=== PATIENT | female | born 1955 | race African-American/Black ===

== ENCOUNTER 2016-10-21 09:50 | Emergency (ER) | payer MEDICARE, MEDICAID ==
[~2016-10-21] VITALS: Ht 170.2 cm; Wt 82.0 kg
[~2016-10-21 09:50] MED LIST: ASPI-1035; CALC-696; DILT360C31; ECON15CR11; FLOV22; HYDR25TA; LORA10TA2; LOSA25TA12; OMEP20CA4; PATAODR; POTA8TAB4; SIMV40TA2
[2016-10-21 10:23] VITALS: BP 163/83
== END 2016-10-21 12:45 | disposition home or self-care (01) ==
LOC: ER 12:41
DX: S92.912A Unspecified fracture of left toe(s), initial encounter for closed fracture (principal); M79.605 Pain in left leg; I10 Essential (primary) hypertension; Z88.5 Allergy status to narcotic agent; Z79.82 Long term (current) use of aspirin; Z79.899 Other long term (current) drug therapy; Z87.891 Personal history of nicotine dependence; X58.XXXA Exposure to other specified factors, initial encounter; Y93.01 Activity, walking, marching and hiking; Y92.9 Unspecified place or not applicable; Y99.8 Other external cause status
CPT/HCPCS: 73590; 73610; 73630; 99284; A4565

== ENCOUNTER 2018-07-09 12:41 | Emergency (ER) | payer MEDICARE, MEDICAID ==
[~2018-07-09] VITALS: Ht 170.2 cm; Wt 75.0 kg
[~2018-07-09 12:41] MED LIST changes: -ASPI-1035; +ASPI-1158
[2018-07-09 12:57] VITALS: BP 154/75
== END 2018-07-09 17:15 | disposition left against medical advice (07) ==
LOC: ER 12:41
DX: Z53.21 Procedure and treatment not carried out due to patient leaving prior to being seen by health care provider (principal)

== ENCOUNTER 2019-07-10 11:28 | Emergency (ER) | payer MEDICARE, MEDICAID ==
[~2019-07-10] VITALS: Ht 162.6 cm; Wt 82.0 kg
[~2019-07-10 11:28] MED LIST changes: -ECON15CR11; +ECON15CR4; -LOSA25TA12; +LOSA25TA26
[2019-07-10 16:07] VITALS: BP 145/75
== END 2019-07-10 16:51 | disposition home or self-care (01) ==
LOC: ER 12:03
DX: S80.812A Abrasion, left lower leg, initial encounter (principal); S80.811A Abrasion, right lower leg, initial encounter; I10 Essential (primary) hypertension; F03.90 Unspecified dementia, unspecified severity, without behavioral disturbance, psychotic disturbance, mood disturbance, and anxiety; W07.XXXA Fall from chair, initial encounter; Y93.9 Activity, unspecified; Y92.9 Unspecified place or not applicable; Z88.6 Allergy status to analgesic agent; Z86.73 Personal history of transient ischemic attack (TIA), and cerebral infarction without residual deficits
CPT/HCPCS: 71045; 72170; 99284

== ENCOUNTER 2020-05-17 11:26 | Inpatient (IN) | payer MEDICARE, MEDICAID ==
[~2020-05-17] VITALS: Ht 157.5 cm; Wt 79.5 kg
[2020-05-17] MEDS ORDERED: ACETAMINOPHEN 325MG TABLET PO STA (11:44)
[2020-05-17] MEDS ORDERED: SODIUM CHLORIDE 0.9% 1000ML BAG (SEPSIS BOLUS) IV ONE (11:45)
[2020-05-17] MEDS ORDERED: ACETAMINOPHEN 650MG SUPP PR ONE (12:45)
[2020-05-17 12:53] LABS: BASOPHILS % 0.4 % (0.0-2.0); HEMATOCRIT. 37.5 % (36.0-48.0); HEMOGLOBIN. 12.5 g/dL (12.0-16.0); LYMPHOCYTES % 8.9 % (20.0-50.0); MEAN CORPUSCULAR HEMOGLOBIN 29.4 pg (28.0-32.0); MEAN CORPUSCULAR VOLUME 88.1 fL (81.0-99.0); MEAN PLATELET VOLUME 9.5 fl (7.4-10.4); MONOCYTES % 2.7 % (2.0-8.0); PLATELET 204 x1000/uL (130-400); RED BLOOD CELL COUNT 4.26 mill/uL (4.2-5.4); RED CELL DISTRIBUTION WIDTH 15.2 % (11.6-14.6)
[2020-05-17 13:02] LABS: INR 1.1; PROTHROMBIN TIME 11.4 sec (9.6-11.0)
[2020-05-17 13:03] LABS: CHLORIDE 95 mEq/L (98-107)
[2020-05-17 13:27] LABS: CREATINE KINASE 1553 IU/L (26-192)
[2020-05-17 14:17] LABS: CLARITY URINE CLOUDY (CLEAR); COLOR URINE YELLOW (YELLOW); KETONES URINE NEGATIVE (NEGATIVE); LEUKOCYTE ESTERASE URINE NEGATIVE (NEGATIVE); NITRITE URINE POSITIVE (NEGATIVE); OCCULT BLOOD URINE TRACE (NEGATIVE); PROTEIN URINE 2+ (NEGATIVE); SPECIFIC GRAVITY URINE 1.014 (1.005-1.030)
[2020-05-17] MEDS ORDERED: VANCOMYCIN 1 G PREMIX 200 ML IV ONE (15:00)
[2020-05-17] MEDS ORDERED: PIPERACILLIN/TAZ 3.375G PREMIX 50 ML IV ONE (15:00)
[2020-05-17] MEDS ORDERED: CLONIDINE 0.1MG TABLET PO PRN (21:45)
[2020-05-18] VITALS: BP 135/61
[2020-05-18] MEDS ORDERED: MORPHINE SULFATE 2 MG/ML CPJ (NOT FOR IM USE) IV PRN (00:15)
[2020-05-18] MEDS ORDERED: ACETAMINOPHEN 325MG TABLET PO PRN (00:15)
[2020-05-18 00:37] VITALS: BP 149/80
[2020-05-18] MEDS: POTASSIUM CHLORIDE 20MEQ TABLET SR PO SCH (01:47)
[2020-05-18] MEDS: PIPERACILLIN/TAZOBACTAM 3.375 G in DEXT 5% WATER 100 ML IV SCH ×3 (05:21→17:48)
[2020-05-18] MEDS: VANCOMYCIN 750 MG PREMIX 150 ML IV SCH ×2 (05:56→22:08)
[2020-05-18] MEDS ORDERED: PIPERACILLIN/TAZOBACTAM 3.375 G/VIAL IV SCH (06:00)
[2020-05-18] MEDS: OMEPRAZOLE 20MG CAPSULE EXTENDED RELEASE PO SCH (06:10)
[2020-05-18 08:00] VITALS: BP 120/53
[2020-05-18] MEDS: ASPIRIN 81MG TABLET PO SCH (09:16)
[2020-05-18] MEDS: LOSARTAN POTASSIUM 25 MG TABLET PO SCH (09:17)
[2020-05-18] MEDS: DILTIAZEM HCL 180MG CAPSULE CD 24HR PO SCH (09:17)
[2020-05-18] MEDS: LORATADINE 10MG TABLET PO SCH (09:17)
[2020-05-18] MEDS: CALCIUM CARBONATE 1250MG TABLET (500MG ELEMENTAL CALCIUM) PO SCH ×3 (09:17→17:47)
[2020-05-18 12:00] VITALS: BP 129/62
[2020-05-18 15:15] LABS: BASOPHILS % 0.2 % (0.0-2.0); CHLORIDE 102 mEq/L (98-107); EOSINOPHILS % 0.7 % (0.0-5.0); HEMATOCRIT. 32.1 % (36.0-48.0); HEMOGLOBIN. 10.7 g/dL (12.0-16.0); LYMPHOCYTES % 12.2 % (20.0-50.0); MEAN CORPUSCULAR HEMOGLOBIN 29.6 pg (28.0-32.0); MEAN CORPUSCULAR VOLUME 88.9 fL (81.0-99.0); MONOCYTES % 5.2 % (2.0-8.0); NEUTROPHILS % 81.7 % (40.0-76.0); PLATELET 163 x1000/uL (130-400); RED BLOOD CELL COUNT 3.61 mill/uL (4.2-5.4); RED CELL DISTRIBUTION WIDTH 15.8 % (11.6-14.6)
[2020-05-18 15:35] LABS: CREATINE KINASE 2032 IU/L (26-192)
[2020-05-18 16:00] VITALS: BP 134/56
[2020-05-18 20:00] VITALS: BP 121/53
[2020-05-18] MEDS: ATORVASTATIN CALCIUM 20MG TABLET PO SCH (21:22)
[2020-05-19] VITALS: BP 128/54
[2020-05-19] MEDS: PIPERACILLIN/TAZOBACTAM 3.375 G in DEXT 5% WATER 100 ML IV SCH ×3 (00:18→13:14)
[2020-05-19 04:00] VITALS: BP 139/78
[2020-05-19] MEDS: OMEPRAZOLE 20MG CAPSULE EXTENDED RELEASE PO SCH (06:18)
[2020-05-19 06:38] LABS: CHLORIDE 102 mEq/L (98-107)
[2020-05-19 08:00] VITALS: BP 137/80
[2020-05-19] MEDS: ASPIRIN 81MG TABLET PO SCH (09:35)
[2020-05-19] MEDS: VANCOMYCIN 750 MG PREMIX 150 ML IV SCH (09:35)
[2020-05-19] MEDS: LORATADINE 10MG TABLET PO SCH (09:35)
[2020-05-19] MEDS: CALCIUM CARBONATE 1250MG TABLET (500MG ELEMENTAL CALCIUM) PO SCH ×3 (09:35→19:45)
[2020-05-19] MEDS: LOSARTAN POTASSIUM 25 MG TABLET PO SCH (09:35)
[2020-05-19] MEDS: DILTIAZEM HCL 180MG CAPSULE CD 24HR PO SCH (09:36)
[2020-05-19] MEDS: POTASSIUM CHLORIDE 20MEQ TABLET SR PO SCH (09:36)
[2020-05-19] MEDS ORDERED: POTASSIUM CHLORIDE 20MEQ TABLET SR PO NR (11:00)
[2020-05-19 12:00] VITALS: BP 128/72
[2020-05-19] MEDS ORDERED: VANCOMYCIN 1250MG in DEXTROSE 5% WATER 250ML IV SCH (13:00)
[2020-05-19] MEDS ORDERED: CEFTRIAXONE 1 G PREMIX 50 ML IV SCH (15:30)
[2020-05-19 16:00] VITALS: BP 136/88
[2020-05-19] MEDS ORDERED: BISACODYL 10MG SUPP PR PRN (16:15)
[2020-05-19] MEDS ORDERED: IPRATROPIUM/ALBUTEROL 0.5-3(2.5)MG/3ML NEB HHN PRN (16:15)
[2020-05-19] MEDS: ENOXAPARIN 40MG/0.4ML SYR SUBCUT SCH ×2 (17:00→19:46)
[2020-05-19] MEDS: SODIUM CHLORIDE 0.9% 1,000 ML IV SCH (19:45)
[2020-05-19] MEDS: CEFTRIAXONE 1,000 MG in DEXTROSE 5% WATER 50 ML IV SCH (19:45)
[2020-05-19] MEDS: VANCOMYCIN 1250MG in DEXTROSE 5% WATER 250ML IV SCH (19:47)
[2020-05-19 20:00] VITALS: BP 148/69
[2020-05-19] MEDS: ATORVASTATIN CALCIUM 20MG TABLET PO SCH (22:39)
[2020-05-20] VITALS (7 sets, daily range): BP systolic 118–158; BP diastolic 55–75
[2020-05-20] MEDS: SODIUM CHLORIDE 0.9% 1,000 ML IV SCH (05:35)
[2020-05-20] MEDS: OMEPRAZOLE 20MG CAPSULE EXTENDED RELEASE PO SCH (05:45)
[2020-05-20] MEDS: VANCOMYCIN 1250MG in DEXTROSE 5% WATER 250ML IV SCH (05:45)
[2020-05-20 09:55] LABS: BASOPHILS % 0.5 % (0.0-2.0); EOSINOPHILS % 6.5 % (0.0-5.0); HEMATOCRIT. 31.9 % (36.0-48.0); HEMOGLOBIN. 10.5 g/dL (12.0-16.0); LYMPHOCYTES % 19.1 % (20.0-50.0); MEAN CORPUSCULAR HEMOGLOBIN 29.4 pg (28.0-32.0); MEAN CORPUSCULAR VOLUME 89.6 fL (81.0-99.0); MEAN PLATELET VOLUME 9.5 fl (7.4-10.4); MONOCYTES % 6.1 % (2.0-8.0); NEUTROPHILS % 67.8 % (40.0-76.0); PLATELET 205 x1000/uL (130-400); RED BLOOD CELL COUNT 3.56 mill/uL (4.2-5.4); RED CELL DISTRIBUTION WIDTH 15.8 % (11.6-14.6)
[2020-05-20 09:56] LABS: CHLORIDE 105 mEq/L (98-107)
[2020-05-20] MEDS: ASPIRIN 81MG TABLET PO SCH (10:01)
[2020-05-20] MEDS: DILTIAZEM HCL 180MG CAPSULE CD 24HR PO SCH (10:02)
[2020-05-20] MEDS: CALCIUM CARBONATE 1250MG TABLET (500MG ELEMENTAL CALCIUM) PO SCH ×4 (10:02→18:04)
[2020-05-20] MEDS: POTASSIUM CHLORIDE 20MEQ TABLET SR PO SCH (10:02)
[2020-05-20] MEDS: LOSARTAN POTASSIUM 25 MG TABLET PO SCH (10:03)
[2020-05-20] MEDS: LORATADINE 10MG TABLET PO SCH (10:03)
[2020-05-20] MEDS ORDERED: LORAZEPAM 2MG/ML CPJ IV PRN (11:00)
[2020-05-20] MEDS ORDERED: LEVO500T2 MT (14:08)
[2020-05-20] MEDS: ENOXAPARIN 40MG/0.4ML SYR SUBCUT SCH (17:00)
[2020-05-20] MEDS: CEFTRIAXONE 1,000 MG in DEXTROSE 5% WATER 50 ML IV SCH (18:02)
[2020-05-20] MEDS: ATORVASTATIN CALCIUM 20MG TABLET PO SCH (20:24)
== END 2020-05-20 20:53 | disposition home or self-care (01) | DRG 871 ==
LOC: ER 12:32 → EDBEDREQSVC 18:10 → EDBEDREQ 18:10 → ENRESERV 19:21 → 5WST 22:58
PROVIDERS: ADMIT Internal Medicine; ATTEND Internal Medicine
DX: A41.9 Sepsis, unspecified organism (principal); G93.41 Metabolic encephalopathy; E87.1 Hypo-osmolality and hyponatremia; E87.2 Acidosis; L03.116 Cellulitis of left lower limb; M62.82 Rhabdomyolysis; N30.90 Cystitis, unspecified without hematuria; D25.9 Leiomyoma of uterus, unspecified; D64.9 Anemia, unspecified; E78.5 Hyperlipidemia, unspecified; E87.6 Hypokalemia; F03.90 Unspecified dementia, unspecified severity, without behavioral disturbance, psychotic disturbance, mood disturbance, and anxiety; I10 Essential (primary) hypertension; K52.9 Noninfective gastroenteritis and colitis, unspecified; K57.90 Diverticulosis of intestine, part unspecified, without perforation or abscess without bleeding; K59.00 Constipation, unspecified; N20.0 Calculus of kidney; E66.9 Obesity, unspecified; R73.9 Hyperglycemia, unspecified; M67.48 Ganglion, other site; Z79.51 Long term (current) use of inhaled steroids; Z79.899 Other long term (current) drug therapy; Z86.73 Personal history of transient ischemic attack (TIA), and cerebral infarction without residual deficits; Z79.82 Long term (current) use of aspirin; Z68.32 Body mass index [BMI] 32.0-32.9, adult
CPT/HCPCS: 36415; 71045; 74176; 80048; 80053; 80202; 81003; 82550; 82962; 83605; 84484; 85025; 87077; 87186; 93005; 96365; 97163; 97166; 97530; 99291; A6261; C1893; J0696; J1650; J2060; J2543; J3370; J7030; J7060

== ENCOUNTER 2020-06-08 14:41 | Inpatient (IN) | payer MEDICARE, MEDICAID ==
[~2020-06-08] VITALS: Ht 162.6 cm; Wt 103.9 kg
[~2020-06-08 14:41] MED LIST changes: +LEVO500T2 MT
[2020-06-08] MEDS ORDERED: ACETAMINOPHEN 650MG SUPP PR STA (16:03)
[2020-06-08] MEDS ORDERED: SODIUM CHLORIDE 0.9% 1000ML BAG (SEPSIS BOLUS) IV ONE (16:15)
[2020-06-08] MEDS ORDERED: CEFTRIAXONE 1 G PREMIX 50 ML IV ONE (16:15)
[2020-06-08 21:06] LABS: BASOPHILS % 0.3 % (0.0-2.0); EOSINOPHILS % 0.1 % (0.0-5.0); HEMOGLOBIN. 12.3 g/dL (12.0-16.0); LYMPHOCYTES % 8.4 % (20.0-50.0); MEAN CORPUSCULAR HEMOGLOBIN 29.8 pg (28.0-32.0); MEAN CORPUSCULAR VOLUME 89.3 fL (81.0-99.0); MEAN PLATELET VOLUME 8.4 fl (7.4-10.4); MONOCYTES % 7.3 % (2.0-8.0); NEUTROPHILS % 83.9 % (40.0-76.0); PLATELET 175 x1000/uL (130-400); RED BLOOD CELL COUNT 4.14 mill/uL (4.2-5.4); RED CELL DISTRIBUTION WIDTH 16.8 % (11.6-14.6)
[2020-06-08 21:11] LABS: INR 1.1
[2020-06-08 21:13] LABS: CHLORIDE 98 mEq/L (98-107)
[2020-06-08] MEDS ORDERED: AZITHROMYCIN 500 MG in DEXT 5% WATER 250 ML IV SCH (23:00)
[2020-06-08] MEDS ORDERED: LORAZEPAM 2MG/ML CPJ IV ONE (23:30)
[2020-06-09] MEDS ORDERED: ASPIRIN 325MG EC TABLET PO ONE (01:00)
[2020-06-09] MEDS ORDERED: CEFTRIAXONE 1 G PREMIX 50 ML IV SCH (01:30)
[2020-06-09 01:48] LABS: CLARITY URINE CLOUDY (CLEAR); COLOR URINE YELLOW (YELLOW); KETONES URINE NEGATIVE (NEGATIVE); LEUKOCYTE ESTERASE URINE 2+ (NEGATIVE); NITRITE URINE NEGATIVE (NEGATIVE); OCCULT BLOOD URINE 1+ (NEGATIVE); PROTEIN URINE 2+ (NEGATIVE)
[2020-06-09] MEDS ORDERED: ACETAMINOPHEN 650MG SUPP PR SCH (03:15)
[2020-06-09] MEDS ORDERED: DIGOXIN 500MCG/2ML AMP IV SCH (04:45)
[2020-06-09] MEDS ORDERED: HYDRALAZINE 20MG/ML VIAL IV PRN (06:15)
[2020-06-09] MEDS ORDERED: SODIUM CHLORIDE 0.9% 1,000 ML IV ONE (10:45)
[2020-06-09] MEDS ORDERED: DIPHENHYDRAMINE 50MG/ML VIAL IV PRN (10:45)
[2020-06-09] MEDS ORDERED: MAGNESIUM/ALUMINUM HYDROXIDE/SIMETHICONE 30ML UDC PO PRN (10:45)
[2020-06-09] MEDS ORDERED: HYDROCODONE/ACETAMINOPHEN 5/325MG TABLET PO PRN (10:45)
[2020-06-09] MEDS ORDERED: DOCUSATE SODIUM 100MG CAPSULE PO PRN (10:45)
[2020-06-09] MEDS ORDERED: NA PHOS,M-B/NA PHOS,DI-BA ENEMA 118ML PR PRN (10:45)
[2020-06-09] MEDS ORDERED: ACETAMINOPHEN 650MG SUPP PR PRN (10:45)
[2020-06-09] MEDS ORDERED: ONDANSETRON HCL 4MG/2ML INJ IV PRN (10:45)
[2020-06-09] MEDS ORDERED: DILTIAZEM HCL 5MG/ML 5ML VIAL IV NR (10:45)
[2020-06-09] MEDS ORDERED: GUAIFENESIN 200MG/10ML SUGAR FREE UDC PO PRN (10:45)
[2020-06-09] MEDS ORDERED: ENOXAPARIN 30MG/0.3ML SYR SUBCUT SCH ×2 (11:30→21:00)
[2020-06-09 12:00] VITALS: BP 171/88
[2020-06-09 12:52] LABS: BG CARBOXYHEMOGLOBIN 0.6 % (0.5-1.5); BG DEOXYHEMOGLOBIN 8.6 % (0.0-5.0); BG HCO3 ACT 25.9 mmol/L (22.0-26.0); BG METHEMOGLOBIN 0.1 % (0.0-1.5); BG OXYGEN SATURATION 91.3 % (92.0-98.5); BG OXYHEMOGLOBIN 90.7 % (94.0-97.0); BG PCO2 38.1 mmHg (35.0-45.0); BG PH 7.451 (7.350-7.450); BG PO2 58.8 mmHg (75.0-100.0); BG SAMPLE SITE RIGHT BRACHIAL; BG TOTAL HEMOGLOBIN 12.1 g/dL (12.0-18.0); BG VENT MODE ROOM AIR
[2020-06-09] MEDS: DEXAMETHASONE 10 MG/ML VIAL IV SCH (15:17)
[2020-06-09] MEDS: DILTIAZEM HCL 30MG TABLET PO SCH ×2 (15:17→21:32)
[2020-06-09] MEDS: FAMOTIDINE 20MG/2ML VIAL IV SCH (15:17)
[2020-06-09] MEDS ORDERED: AZITHROMYCIN 500 MG in DEXT 5% WATER 250 ML IV SCH (16:00)
[2020-06-09] MEDS: SODIUM CHLORIDE 0.9% 1,000 ML IV SCH (17:26)
[2020-06-09 18:09] VITALS: BP 140/77
[2020-06-09 20:00] VITALS: BP 106/54
[2020-06-09] MEDS: ENOXAPARIN 40MG/0.4ML SYR SUBCUT SCH (21:33)
[2020-06-10] VITALS: BP 110/67
[2020-06-10] MEDS ORDERED: PIPERACILLIN/TAZOBACTAM 3.375 G/VIAL IV SCH
[2020-06-10 00:13] LABS: CHLORIDE 101 mEq/L (98-107)
[2020-06-10 00:21] LABS: CREATINE KINASE 176 IU/L (26-192)
[2020-06-10 00:24] LABS: CREATINE KINASE MB FRACTION < 1.0 ng/mL (0.5-3.6)
[2020-06-10 00:26] LABS: HEMOGLOBIN. 10.6 g/dL (12.0-16.0); MEAN CORPUSCULAR HEMOGLOBIN 29.3 pg (28.0-32.0); MEAN CORPUSCULAR VOLUME 88.4 fL (81.0-99.0); MEAN PLATELET VOLUME 9.3 fl (7.4-10.4); PLATELET 129 x1000/uL (130-400); RED BLOOD CELL COUNT 3.62 mill/uL (4.2-5.4); RED CELL DISTRIBUTION WIDTH 16.7 % (11.6-14.6)
[2020-06-10] MEDS ORDERED: GENTAMICIN SULFATE 150 MG in SODIUM CHLORIDE 0.9% 100 ML IV NR (01:00)
[2020-06-10] MEDS ORDERED: CEFTRIAXONE 1,000 MG in DEXTROSE 5% WATER 50 ML IV SCH (01:00)
[2020-06-10 01:04] LABS: PLATELET ESTIMATE SLIGHTLY DECREASED
[2020-06-10] MEDS: PIPERACILLIN/TAZOBACTAM 3.375 G in DEXT 5% WATER 100 ML IV SCH ×4 (01:34→20:00)
[2020-06-10 05:15] VITALS: BP 113/64
[2020-06-10] MEDS ORDERED: AZITHROMYCIN 500 MG in DEXT 5% WATER 250 ML IV SCH ×4 (06:00)
[2020-06-10] MEDS ORDERED: CEFTRIAXONE 1 G PREMIX 50 ML IV SCH (06:00)
[2020-06-10 07:28] VITALS: BP 129/75
[2020-06-10] MEDS: DILTIAZEM HCL 30MG TABLET PO SCH ×3 (07:29→21:18)
[2020-06-10] MEDS: DEXAMETHASONE 10 MG/ML VIAL IV SCH (09:36)
[2020-06-10] MEDS: FAMOTIDINE 20MG/2ML VIAL IV SCH (09:36)
[2020-06-10] MEDS: SODIUM CHLORIDE 0.9% 1,000 ML IV SCH (09:38)
[2020-06-10] MEDS: ENOXAPARIN 40MG/0.4ML SYR SUBCUT SCH ×2 (09:38→21:17)
[2020-06-10] MEDS ORDERED: LORAZEPAM 2MG/ML CPJ IV NR (12:00)
[2020-06-10] MEDS: LORAZEPAM 0.5MG TABLET PO PRN (13:49)
[2020-06-10 20:46] VITALS: BP 114/48
[2020-06-10] MEDS: HALOPERIDOL LACTATE 5MG/ML VIAL IM PRN (22:48)
[2020-06-10] MEDS: GENTAMICIN 120MG PREMIX 100 ML IV SCH (23:00)
[2020-06-11] MEDS: SODIUM CHLORIDE 0.9% 1,000 ML IV SCH ×2 (00:05→01:17)
[2020-06-11 00:40] VITALS: BP 102/46
[2020-06-11] MEDS: GENTAMICIN 120MG PREMIX 100 ML IV SCH (01:16)
[2020-06-11] MEDS: PIPERACILLIN/TAZOBACTAM 3.375 G in DEXT 5% WATER 100 ML IV SCH ×2 (02:22→08:33)
[2020-06-11 04:00] VITALS: BP 125/69
[2020-06-11] MEDS: HALOPERIDOL LACTATE 5MG/ML VIAL IM PRN ×2 (06:30→12:08)
[2020-06-11] MEDS: DILTIAZEM HCL 30MG TABLET PO SCH ×3 (06:31→21:14)
[2020-06-11 07:06] LABS: BASOPHILS % 0.2 % (0.0-2.0); HEMATOCRIT. 36.5 % (36.0-48.0); HEMOGLOBIN. 11.9 g/dL (12.0-16.0); LYMPHOCYTES % 12.9 % (20.0-50.0); MEAN CORPUSCULAR HEMOGLOBIN 29.1 pg (28.0-32.0); MEAN CORPUSCULAR VOLUME 89.4 fL (81.0-99.0); MEAN PLATELET VOLUME 9.7 fl (7.4-10.4); MONOCYTES % 6.2 % (2.0-8.0); NEUTROPHILS % 80.7 % (40.0-76.0); PLATELET 142 x1000/uL (130-400); RED BLOOD CELL COUNT 4.09 mill/uL (4.2-5.4); RED CELL DISTRIBUTION WIDTH 16.7 % (11.6-14.6)
[2020-06-11 07:09] LABS: CHLORIDE 106 mEq/L (98-107)
[2020-06-11 08:00] VITALS: BP 119/100
[2020-06-11] MEDS: FAMOTIDINE 20MG/2ML VIAL IV SCH (08:33)
[2020-06-11] MEDS: ENOXAPARIN 40MG/0.4ML SYR SUBCUT SCH (08:38)
[2020-06-11] MEDS: DEXAMETHASONE 10 MG/ML VIAL IV SCH (08:38)
[2020-06-11 12:00] VITALS: BP 111/62
[2020-06-11] MEDS: MEROPENEM 1,000 MG in SODIUM CHLORIDE 0.9% 100 ML IV SCH ×2 (12:08→21:23)
[2020-06-11] MEDS ORDERED: LIDOCAINE HCL 1% 20ML VIAL (Pyxis) INJ ONE (13:48)
[2020-06-11] MEDS: LORAZEPAM 0.5MG TABLET PO PRN (15:58)
[2020-06-11 16:00] VITALS: BP 151/61
[2020-06-11 20:00] VITALS: BP 113/48
[2020-06-11] MEDS: ENOXAPARIN 30MG/0.3ML SYR SUBCUT SCH (21:24)
[2020-06-12] VITALS: BP 124/67
[2020-06-12] MEDS: LORAZEPAM 0.5MG TABLET PO PRN ×2 (00:46→06:28)
[2020-06-12] MEDS: IPRATROPIUM/ALBUTEROL 0.5-3(2.5)MG/3ML NEB HHN SCH ×4 (01:34→22:30)
[2020-06-12 04:00] VITALS: BP 127/68
[2020-06-12] MEDS: MEROPENEM 1,000 MG in SODIUM CHLORIDE 0.9% 100 ML IV SCH ×3 (06:27→20:54)
[2020-06-12] MEDS: DILTIAZEM HCL 30MG TABLET PO SCH ×3 (06:28→22:14)
[2020-06-12 07:57] LABS: HEMATOCRIT 34.2 % (36.0-48.0); PLATELET 178 x1000/uL (130-400); RED CELL DISTRIBUTION WIDTH 17.1 % (11.6-14.6)
[2020-06-12 08:18] LABS: CHLORIDE 109 mEq/L (98-107)
[2020-06-12] MEDS: FAMOTIDINE 20MG/2ML VIAL IV SCH (08:46)
[2020-06-12] MEDS: ENOXAPARIN 30MG/0.3ML SYR SUBCUT SCH ×2 (08:47→22:15)
[2020-06-12] MEDS ORDERED: POTASSIUM CHLORIDE 20MEQ TABLET SR PO NR (11:15)
[2020-06-12 12:00] VITALS: BP 145/90
[2020-06-12] MEDS: ACETAMINOPHEN 325MG TABLET PO PRN (15:50)
[2020-06-12 16:00] VITALS: BP 158/89
[2020-06-12 18:27] VITALS: BP 142/82
[2020-06-12 20:00] VITALS: BP 147/84
[2020-06-13] VITALS: BP 151/94
[2020-06-13 04:00] VITALS: BP 156/91
[2020-06-13] MEDS: MEROPENEM 1,000 MG in SODIUM CHLORIDE 0.9% 100 ML IV SCH ×3 (04:21→21:32)
[2020-06-13] MEDS: DILTIAZEM HCL 30MG TABLET PO SCH ×3 (06:00→21:33)
[2020-06-13 08:00] VITALS: BP 191/81
[2020-06-13] MEDS: ENOXAPARIN 30MG/0.3ML SYR SUBCUT SCH ×2 (08:38→21:34)
[2020-06-13] MEDS: FAMOTIDINE 20MG/2ML VIAL IV SCH (08:38)
[2020-06-13] MEDS: CLONIDINE 0.1MG TABLET PO PRN (11:22)
[2020-06-13] MEDS: ACETAMINOPHEN 325MG TABLET PO PRN ×2 (11:22→21:33)
[2020-06-13 12:01] VITALS: BP 170/80
[2020-06-13 16:00] VITALS: BP 153/65
[2020-06-13] MEDS: ERGOCALCIFEROL 50000UNITS CAPSULE PO SCH (17:00)
[2020-06-13 18:30] LABS: BG BASE EXCESS 4.5 mmol/L (-2.0-2.0); BG CARBOXYHEMOGLOBIN 0.4 % (0.5-1.5); BG DEOXYHEMOGLOBIN 6.3 % (0.0-5.0); BG FRACTION INSPIRED OXYGEN 21; BG HCO3 ACT 27.9 mmol/L (22.0-26.0); BG METHEMOGLOBIN 0.3 % (0.0-1.5); BG OXYGEN SATURATION 93.7 % (92.0-98.5); BG PCO2 37.4 mmHg (35.0-45.0); BG PH 7.491 (7.350-7.450); BG PO2 65.6 mmHg (75.0-100.0); BG SAMPLE SITE LEFT RADIAL; BG TOTAL HEMOGLOBIN 11.7 g/dL (12.0-18.0); BG VENT MODE ROOM AIR
[2020-06-13 20:00] VITALS: BP 154/96
[2020-06-13] MEDS: IPRATROPIUM/ALBUTEROL 0.5-3(2.5)MG/3ML NEB HHN SCH (22:05)
[2020-06-13] MEDS: HALOPERIDOL LACTATE 5MG/ML VIAL IM PRN (22:40)
[2020-06-14] VITALS: BP 150/69
[2020-06-14 04:00] VITALS: BP 173/89
[2020-06-14] MEDS: MEROPENEM 1,000 MG in SODIUM CHLORIDE 0.9% 100 ML IV SCH ×3 (04:19→20:18)
[2020-06-14 06:17] LABS: BASOPHILS % 0.4 % (0.0-2.0); HEMATOCRIT. 30.4 % (36.0-48.0); HEMOGLOBIN. 9.8 g/dL (12.0-16.0); LYMPHOCYTES % 14.4 % (20.0-50.0); MEAN CORPUSCULAR HEMOGLOBIN 28.9 pg (28.0-32.0); MEAN CORPUSCULAR VOLUME 89.4 fL (81.0-99.0); MONOCYTES % 6.6 % (2.0-8.0); NEUTROPHILS % 77.6 % (40.0-76.0); PLATELET 177 x1000/uL (130-400)
[2020-06-14] MEDS: DILTIAZEM HCL 30MG TABLET PO SCH ×3 (06:29→21:45)
[2020-06-14] MEDS: CLONIDINE 0.1MG TABLET PO PRN (06:29)
[2020-06-14 06:33] LABS: CHLORIDE 106 mEq/L (98-107)
[2020-06-14 06:56] LABS: CREATINE KINASE 407 IU/L (26-192)
[2020-06-14 08:11] VITALS: BP 166/90
[2020-06-14] MEDS: ENOXAPARIN 30MG/0.3ML SYR SUBCUT SCH ×2 (09:08→21:00)
[2020-06-14] MEDS: FAMOTIDINE 20MG/2ML VIAL IV SCH (09:08)
[2020-06-14 12:22] VITALS: BP 157/87
[2020-06-14] MEDS: LOSARTAN POTASSIUM 50 MG TABLET PO SCH (13:38)
[2020-06-14 16:00] VITALS: BP 142/68
[2020-06-14 19:56] VITALS: BP 154/88
[2020-06-14] MEDS: ACETAMINOPHEN 325MG TABLET PO PRN (20:19)
[2020-06-15 00:04] VITALS: BP 151/73
[2020-06-15 04:00] VITALS: BP 146/82
[2020-06-15] MEDS: MEROPENEM 1,000 MG in SODIUM CHLORIDE 0.9% 100 ML IV SCH ×3 (04:00→20:31)
[2020-06-15] MEDS: DILTIAZEM HCL 30MG TABLET PO SCH ×3 (06:10→21:35)
[2020-06-15 08:00] VITALS: BP_SYST 132; BP_SYST 168; BP_DIAS 74; BP_DIAS 83
[2020-06-15] MEDS: IPRATROPIUM/ALBUTEROL 0.5-3(2.5)MG/3ML NEB HHN SCH ×3 (08:00→16:00)
[2020-06-15] MEDS: FAMOTIDINE 20MG/2ML VIAL IV SCH (09:00)
[2020-06-15] MEDS: ENOXAPARIN 30MG/0.3ML SYR SUBCUT SCH ×2 (09:00→21:35)
[2020-06-15] MEDS: LOSARTAN POTASSIUM 50 MG TABLET PO SCH (10:02)
[2020-06-15 10:17] LABS: CHLORIDE 105 mEq/L (98-107)
[2020-06-15] MEDS ORDERED: LIDOCAINE HCL 1% 20ML VIAL (Pyxis) INJ ONE (11:11)
[2020-06-15] MEDS ORDERED: SODIUM BICARBONATE 4% (2.4MEQ) 5ML VIAL IV ONE (11:11)
[2020-06-15 14:44] LABS: AMYLASE 50 IU/L (25-115)
[2020-06-15 16:25] VITALS: BP 165/71
[2020-06-15 16:55] LABS: BASOPHILS % 0.8 % (0.0-2.0); EOSINOPHILS % 5.2 % (0.0-5.0); HEMATOCRIT. 33.6 % (36.0-48.0); HEMOGLOBIN. 11.1 g/dL (12.0-16.0); LYMPHOCYTES % 14.6 % (20.0-50.0); MEAN CORPUSCULAR HEMOGLOBIN 29.4 pg (28.0-32.0); MEAN CORPUSCULAR VOLUME 88.9 fL (81.0-99.0); MEAN PLATELET VOLUME 9.8 fl (7.4-10.4); NEUTROPHILS % 74.4 % (40.0-76.0); PLATELET 240 x1000/uL (130-400); RED BLOOD CELL COUNT 3.78 mill/uL (4.2-5.4); RED CELL DISTRIBUTION WIDTH 17.5 % (11.6-14.6)
[2020-06-15 20:00] VITALS: BP 153/78
[2020-06-16] VITALS (7 sets, daily range): BP systolic 117–204; BP diastolic 52–90
[2020-06-16] MEDS: MEROPENEM 1,000 MG in SODIUM CHLORIDE 0.9% 100 ML IV SCH ×3 (04:27→21:21)
[2020-06-16] MEDS: DILTIAZEM HCL 30MG TABLET PO SCH ×4 (06:14→21:45)
[2020-06-16 07:27] LABS: BASOPHILS % 0.5 % (0.0-2.0); HEMATOCRIT. 32.6 % (36.0-48.0); HEMOGLOBIN. 10.8 g/dL (12.0-16.0); LYMPHOCYTES % 16.8 % (20.0-50.0); MEAN CORPUSCULAR HEMOGLOBIN 29.6 pg (28.0-32.0); MEAN CORPUSCULAR VOLUME 88.9 fL (81.0-99.0); MEAN PLATELET VOLUME 9.3 fl (7.4-10.4); NEUTROPHILS % 72.7 % (40.0-76.0); PLATELET 249 x1000/uL (130-400); RED BLOOD CELL COUNT 3.66 mill/uL (4.2-5.4); RED CELL DISTRIBUTION WIDTH 17.8 % (11.6-14.6)
[2020-06-16 07:30] LABS: CHLORIDE 106 mEq/L (98-107)
[2020-06-16 07:39] LABS: AMYLASE 44 IU/L (25-115)
[2020-06-16] MEDS: ENOXAPARIN 30MG/0.3ML SYR SUBCUT SCH ×2 (09:00→21:44)
[2020-06-16] MEDS ORDERED: LORAZEPAM 2MG/ML CPJ IV NR (09:45)
[2020-06-16] MEDS: FAMOTIDINE 20MG/2ML VIAL IV SCH (09:56)
[2020-06-16] MEDS: LOSARTAN POTASSIUM 50 MG TABLET PO SCH (09:56)
[2020-06-16] MEDS: CLONIDINE 0.1MG TABLET PO PRN (11:41)
[2020-06-16] MEDS ORDERED: HYDRALAZINE 20MG/ML VIAL IV PRN (12:15)
[2020-06-16] MEDS ORDERED: HYDRALAZINE 20MG/ML VIAL IV NR (12:30)
[2020-06-17] VITALS: BP 138/69
[2020-06-17 04:00] VITALS: BP 95/77
[2020-06-17] MEDS: MEROPENEM 1,000 MG in SODIUM CHLORIDE 0.9% 100 ML IV SCH ×3 (04:42→21:15)
[2020-06-17] MEDS: DILTIAZEM HCL 30MG TABLET PO SCH ×3 (05:59→21:16)
[2020-06-17 08:00] VITALS: BP 166/98
[2020-06-17] MEDS: ENOXAPARIN 30MG/0.3ML SYR SUBCUT SCH ×2 (09:00→21:17)
[2020-06-17] MEDS: FAMOTIDINE 20MG/2ML VIAL IV SCH (09:28)
[2020-06-17] MEDS: LOSARTAN POTASSIUM 50 MG TABLET PO SCH (09:28)
[2020-06-17 10:04] LABS: BASOPHILS % 0.5 % (0.0-2.0); EOSINOPHILS % 2.1 % (0.0-5.0); HEMATOCRIT. 32.7 % (36.0-48.0); HEMOGLOBIN. 10.7 g/dL (12.0-16.0); LYMPHOCYTES % 11.2 % (20.0-50.0); MEAN CORPUSCULAR HEMOGLOBIN 28.8 pg (28.0-32.0); MEAN CORPUSCULAR VOLUME 88.1 fL (81.0-99.0); MEAN PLATELET VOLUME 9.4 fl (7.4-10.4); NEUTROPHILS % 80.2 % (40.0-76.0); PLATELET 302 x1000/uL (130-400); RED BLOOD CELL COUNT 3.71 mill/uL (4.2-5.4); RED CELL DISTRIBUTION WIDTH 18.1 % (11.6-14.6)
[2020-06-17 10:18] LABS: CHLORIDE 106 mEq/L (98-107)
[2020-06-17 12:00] VITALS: BP 155/75
[2020-06-17 16:00] VITALS: BP 166/74
[2020-06-17 17:49] LABS: CHLORIDE 107 mEq/L (98-107)
[2020-06-17 20:00] VITALS: BP 147/65
[2020-06-17] MEDS: QUETIAPINE FUMARATE 25MG TABLET PO SCH (21:18)
[2020-06-18] VITALS: BP 135/63
[2020-06-18 04:00] VITALS: BP 145/67
[2020-06-18] MEDS: MEROPENEM 1,000 MG in SODIUM CHLORIDE 0.9% 100 ML IV SCH ×4 (04:41→20:04)
[2020-06-18] MEDS: DILTIAZEM HCL 30MG TABLET PO SCH ×3 (06:19→20:33)
[2020-06-18 06:50] LABS: BASOPHILS % 0.5 % (0.0-2.0); EOSINOPHILS % 2.1 % (0.0-5.0); HEMATOCRIT. 31.4 % (36.0-48.0); HEMOGLOBIN. 10.3 g/dL (12.0-16.0); LYMPHOCYTES % 12.1 % (20.0-50.0); MEAN CORPUSCULAR HEMOGLOBIN 29.3 pg (28.0-32.0); MEAN CORPUSCULAR VOLUME 89.2 fL (81.0-99.0); MEAN PLATELET VOLUME 9.1 fl (7.4-10.4); MONOCYTES % 4.8 % (2.0-8.0); NEUTROPHILS % 80.5 % (40.0-76.0); PLATELET 300 x1000/uL (130-400); RED BLOOD CELL COUNT 3.53 mill/uL (4.2-5.4)
[2020-06-18 08:00] VITALS: BP 130/92
[2020-06-18] MEDS: QUETIAPINE FUMARATE 25MG TABLET PO SCH ×2 (09:21→20:04)
[2020-06-18] MEDS: FAMOTIDINE 20MG/2ML VIAL IV SCH (09:21)
[2020-06-18] MEDS: LOSARTAN POTASSIUM 50 MG TABLET PO SCH (09:21)
[2020-06-18] MEDS: ENOXAPARIN 30MG/0.3ML SYR SUBCUT SCH ×3 (09:22→20:12)
[2020-06-18 12:00] VITALS: BP 111/73
[2020-06-18 16:29] VITALS: BP 140/59
[2020-06-18 20:00] VITALS: BP 153/100
[2020-06-19] VITALS: BP 140/76
[2020-06-19 04:00] VITALS: BP 142/74
[2020-06-19] MEDS: MEROPENEM 1,000 MG in SODIUM CHLORIDE 0.9% 100 ML IV SCH ×3 (04:00→20:27)
[2020-06-19] MEDS: DILTIAZEM HCL 30MG TABLET PO SCH ×3 (07:41→21:19)
[2020-06-19 08:00] VITALS: BP_SYST 138; BP_SYST 139; BP_DIAS 68; BP_DIAS 70
[2020-06-19] MEDS: FAMOTIDINE 20MG/2ML VIAL IV SCH (08:47)
[2020-06-19] MEDS: ENOXAPARIN 30MG/0.3ML SYR SUBCUT SCH ×2 (08:47→21:18)
[2020-06-19] MEDS: LOSARTAN POTASSIUM 50 MG TABLET PO SCH (08:47)
[2020-06-19] MEDS: QUETIAPINE FUMARATE 25MG TABLET PO SCH (08:47)
[2020-06-19 12:00] VITALS: BP 152/69
[2020-06-19 12:27] LABS: BASOPHILS % 0.3 % (0.0-2.0); EOSINOPHILS % 1.4 % (0.0-5.0); HEMATOCRIT. 30.5 % (36.0-48.0); HEMOGLOBIN. 9.8 g/dL (12.0-16.0); LYMPHOCYTES % 9.8 % (20.0-50.0); MEAN CORPUSCULAR HEMOGLOBIN 28.5 pg (28.0-32.0); MEAN CORPUSCULAR VOLUME 89.1 fL (81.0-99.0); MEAN PLATELET VOLUME 8.6 fl (7.4-10.4); MONOCYTES % 4.1 % (2.0-8.0); NEUTROPHILS % 84.4 % (40.0-76.0); PLATELET 319 x1000/uL (130-400); RED BLOOD CELL COUNT 3.43 mill/uL (4.2-5.4); RED CELL DISTRIBUTION WIDTH 17.4 % (11.6-14.6)
[2020-06-19 12:31] LABS: CHLORIDE 106 mEq/L (98-107)
[2020-06-19 20:00] VITALS: BP 108/58
[2020-06-19] MEDS: QUETIAPINE FUMARATE 50MG TABLET PO SCH (21:18)
[2020-06-20] VITALS: BP 142/73
[2020-06-20] MEDS: IPRATROPIUM/ALBUTEROL 0.5-3(2.5)MG/3ML NEB HHN SCH (01:15)
[2020-06-20 04:00] VITALS: BP 137/47
[2020-06-20] MEDS: MEROPENEM 1,000 MG in SODIUM CHLORIDE 0.9% 100 ML IV SCH ×3 (04:13→23:47)
[2020-06-20] MEDS: DILTIAZEM HCL 30MG TABLET PO SCH ×3 (06:00→23:47)
[2020-06-20 07:27] LABS: BASOPHILS % 0.6 % (0.0-2.0); EOSINOPHILS % 1.9 % (0.0-5.0); HEMATOCRIT. 29.3 % (36.0-48.0); HEMOGLOBIN. 9.4 g/dL (12.0-16.0); LYMPHOCYTES % 10.4 % (20.0-50.0); MEAN CORPUSCULAR HEMOGLOBIN 28.8 pg (28.0-32.0); MEAN CORPUSCULAR VOLUME 90.2 fL (81.0-99.0); MEAN PLATELET VOLUME 9.5 fl (7.4-10.4); MONOCYTES % 4.5 % (2.0-8.0); NEUTROPHILS % 82.6 % (40.0-76.0); PLATELET 316 x1000/uL (130-400); RED BLOOD CELL COUNT 3.25 mill/uL (4.2-5.4); RED CELL DISTRIBUTION WIDTH 17.4 % (11.6-14.6)
[2020-06-20 08:00] VITALS: BP 163/50
[2020-06-20 08:30] LABS: CHLORIDE 107 mEq/L (98-107)
[2020-06-20] MEDS: ERGOCALCIFEROL 50000UNITS CAPSULE PO SCH (09:37)
[2020-06-20] MEDS: QUETIAPINE FUMARATE 50MG TABLET PO SCH ×2 (09:37→23:48)
[2020-06-20] MEDS: FAMOTIDINE 20MG/2ML VIAL IV SCH (09:37)
[2020-06-20] MEDS: ENOXAPARIN 30MG/0.3ML SYR SUBCUT SCH ×2 (09:37→23:47)
[2020-06-20] MEDS: LOSARTAN POTASSIUM 50 MG TABLET PO SCH (09:37)
[2020-06-20] MEDS: ACETAMINOPHEN 325MG TABLET PO PRN (11:13)
[2020-06-20 12:00] VITALS: BP 130/109
[2020-06-20 16:00] VITALS: BP 132/59
[2020-06-20 20:00] VITALS: BP 152/73
[2020-06-21] VITALS: BP 147/62
[2020-06-21 04:00] VITALS: BP 134/70
[2020-06-21] MEDS: DILTIAZEM HCL 30MG TABLET PO SCH ×3 (06:53→21:02)
[2020-06-21] MEDS: MEROPENEM 1,000 MG in SODIUM CHLORIDE 0.9% 100 ML IV SCH ×2 (06:53→12:07)
[2020-06-21 07:50] LABS: BASOPHILS % 0.9 % (0.0-2.0); EOSINOPHILS % 1.7 % (0.0-5.0); HEMATOCRIT. 28.3 % (36.0-48.0); HEMOGLOBIN. 9.1 g/dL (12.0-16.0); LYMPHOCYTES % 12.2 % (20.0-50.0); MEAN CORPUSCULAR HEMOGLOBIN 29.1 pg (28.0-32.0); MEAN CORPUSCULAR VOLUME 90.4 fL (81.0-99.0); MEAN PLATELET VOLUME 9.7 fl (7.4-10.4); NEUTROPHILS % 80.2 % (40.0-76.0); PLATELET 329 x1000/uL (130-400); RED BLOOD CELL COUNT 3.13 mill/uL (4.2-5.4); RED CELL DISTRIBUTION WIDTH 17.9 % (11.6-14.6)
[2020-06-21 08:00] VITALS: BP 158/70
[2020-06-21 08:18] LABS: CHLORIDE 108 mEq/L (98-107)
[2020-06-21 08:28] LABS: CREATINE KINASE 116 IU/L (26-192)
[2020-06-21] MEDS: ENOXAPARIN 30MG/0.3ML SYR SUBCUT SCH ×3 (09:00→21:02)
[2020-06-21] MEDS: QUETIAPINE FUMARATE 50MG TABLET PO SCH ×2 (10:03→21:02)
[2020-06-21] MEDS: LOSARTAN POTASSIUM 50 MG TABLET PO SCH (10:03)
[2020-06-21] MEDS: ACETAMINOPHEN 325MG TABLET PO PRN ×2 (10:04→21:22)
[2020-06-21] MEDS: FAMOTIDINE 20MG/2ML VIAL IV SCH (10:04)
[2020-06-21] MEDS: IPRATROPIUM/ALBUTEROL 0.5-3(2.5)MG/3ML NEB HHN SCH ×2 (11:53→15:33)
[2020-06-21 12:00] VITALS: BP 131/39
[2020-06-21 16:00] VITALS: BP 165/90
[2020-06-21 20:00] VITALS: BP 157/75
[2020-06-21] MEDS: NYSTATIN 100,000 UNITS/GM CREAM 15GM TOP SCH (21:03)
[2020-06-22] VITALS: BP 103/62
[2020-06-22 04:00] VITALS: BP 107/51
[2020-06-22] MEDS: DILTIAZEM HCL 30MG TABLET PO SCH ×3 (06:35→22:52)
[2020-06-22 07:53] LABS: BASOPHILS % 0.5 % (0.0-2.0); EOSINOPHILS % 2.9 % (0.0-5.0); HEMATOCRIT. 28.3 % (36.0-48.0); LYMPHOCYTES % 19.1 % (20.0-50.0); MEAN CORPUSCULAR HEMOGLOBIN 29.3 pg (28.0-32.0); MONOCYTES % 5.8 % (2.0-8.0); NEUTROPHILS % 71.7 % (40.0-76.0); RED BLOOD CELL COUNT 3.08 mill/uL (4.2-5.4); RED CELL DISTRIBUTION WIDTH 18.2 % (11.6-14.6)
[2020-06-22 08:00] VITALS: BP 137/81
[2020-06-22] MEDS: IPRATROPIUM/ALBUTEROL 0.5-3(2.5)MG/3ML NEB HHN SCH ×3 (08:00→21:29)
[2020-06-22] MEDS: QUETIAPINE FUMARATE 50MG TABLET PO SCH ×2 (09:00→22:51)
[2020-06-22] MEDS: ENOXAPARIN 30MG/0.3ML SYR SUBCUT SCH (09:00)
[2020-06-22] MEDS: LOSARTAN POTASSIUM 50 MG TABLET PO SCH (09:00)
[2020-06-22 10:48] LABS: PLATELET 259 x1000/uL (130-400)
[2020-06-22] MEDS: FAMOTIDINE 20MG/2ML VIAL IV SCH (10:52)
[2020-06-22] MEDS: NYSTATIN 100,000 UNITS/GM CREAM 15GM TOP SCH ×2 (10:52→22:52)
[2020-06-22 12:00] VITALS: BP 148/70
[2020-06-22 16:00] VITALS: BP 163/80
[2020-06-22 16:34] LABS: HEPATITIS B SURFACE ANTIGEN NEGATIVE
[2020-06-22 17:03] LABS: HEPATITIS A AB IGM NEGATIVE (NEGATIVE)
[2020-06-22] MEDS: CLONIDINE 0.1MG TABLET PO PRN (18:16)
[2020-06-22 20:00] VITALS: BP 119/64
[2020-06-22] MEDS: MEROPENEM 1,000 MG in SODIUM CHLORIDE 0.9% 100 ML IV SCH (22:51)
[2020-06-23] VITALS: BP 134/64
[2020-06-23] MEDS: MEROPENEM 1,000 MG in SODIUM CHLORIDE 0.9% 100 ML IV SCH ×2 (03:35→12:17)
[2020-06-23 04:00] VITALS: BP 138/80
[2020-06-23 06:02] LABS: BASOPHILS % 0.4 % (0.0-2.0); EOSINOPHILS % 2.8 % (0.0-5.0); HEMATOCRIT. 30.1 % (36.0-48.0); HEMOGLOBIN. 9.5 g/dL (12.0-16.0); MEAN CORPUSCULAR HEMOGLOBIN 28.3 pg (28.0-32.0); MEAN CORPUSCULAR VOLUME 89.8 fL (81.0-99.0); MEAN PLATELET VOLUME 9.2 fl (7.4-10.4); MONOCYTES % 5.4 % (2.0-8.0); NEUTROPHILS % 75.4 % (40.0-76.0); PLATELET 354 x1000/uL (130-400); RED BLOOD CELL COUNT 3.35 mill/uL (4.2-5.4); RED CELL DISTRIBUTION WIDTH 17.6 % (11.6-14.6)
[2020-06-23 06:16] LABS: CHLORIDE 106 mEq/L (98-107)
[2020-06-23] MEDS: DILTIAZEM HCL 30MG TABLET PO SCH ×3 (06:19→21:52)
[2020-06-23 08:00] VITALS: BP 161/67
[2020-06-23] MEDS: QUETIAPINE FUMARATE 50MG TABLET PO SCH ×2 (09:00→21:52)
[2020-06-23] MEDS: LOSARTAN POTASSIUM 50 MG TABLET PO SCH (09:00)
[2020-06-23] MEDS: FAMOTIDINE 20MG/2ML VIAL IV SCH (10:04)
[2020-06-23 12:00] VITALS: BP 143/72
[2020-06-23] MEDS: NYSTATIN 100,000 UNITS/GM CREAM 15GM TOP SCH ×2 (12:16→21:53)
[2020-06-23] MEDS: HALOPERIDOL LACTATE 5MG/ML VIAL IM PRN (13:47)
[2020-06-23 16:00] VITALS: BP 114/90
[2020-06-23 20:00] VITALS: BP 172/76
[2020-06-23] MEDS: MEROPENEM 1,000 MG in SODIUM CHLORIDE 0.9% 50 ML IV SCH (21:52)
[2020-06-23] MEDS: DEXT 5%/0.45% NACL 1000ML 1,000 ML IV SCH (21:54)
[2020-06-24] VITALS: BP 119/66
[2020-06-24 04:00] VITALS: BP 106/65
[2020-06-24] MEDS: MEROPENEM 1,000 MG in SODIUM CHLORIDE 0.9% 50 ML IV SCH ×2 (06:01→12:30)
[2020-06-24] MEDS: DILTIAZEM HCL 30MG TABLET PO SCH ×2 (06:01→14:00)
[2020-06-24 08:00] VITALS: BP 151/74
[2020-06-24] MEDS: NYSTATIN 100,000 UNITS/GM CREAM 15GM TOP SCH (09:00)
[2020-06-24] MEDS: QUETIAPINE FUMARATE 50MG TABLET PO SCH (09:00)
[2020-06-24] MEDS: FAMOTIDINE 20MG/2ML VIAL IV SCH (09:00)
[2020-06-24] MEDS: LOSARTAN POTASSIUM 50 MG TABLET PO SCH (09:00)
[2020-06-24 10:12] LABS: BASOPHILS % 0.6 % (0.0-2.0); EOSINOPHILS % 2.5 % (0.0-5.0); HEMATOCRIT. 31.8 % (36.0-48.0); HEMOGLOBIN. 10.3 g/dL (12.0-16.0); LYMPHOCYTES % 15.3 % (20.0-50.0); MEAN CORPUSCULAR HEMOGLOBIN 29.3 pg (28.0-32.0); MEAN PLATELET VOLUME 8.9 fl (7.4-10.4); MONOCYTES % 5.7 % (2.0-8.0); NEUTROPHILS % 75.9 % (40.0-76.0); PLATELET 356 x1000/uL (130-400); RED BLOOD CELL COUNT 3.53 mill/uL (4.2-5.4); RED CELL DISTRIBUTION WIDTH 17.6 % (11.6-14.6)
[2020-06-24 10:25] LABS: CHLORIDE 104 mEq/L (98-107)
[2020-06-24] MEDS ORDERED: AMOX1TAB16 MT (11:10)
[2020-06-24] MEDS: DEXT 5%/0.45% NACL 1000ML 1,000 ML IV SCH (12:30)
[2020-06-24 14:34] VITALS: BP 153/92
== END 2020-06-24 17:30 | disposition hospice, home (50) | DRG 871 ==
LOC: ER 14:41 → 7WST 06-09 01:00 → EDBEDREQ 06-09 01:11 → EDBEDREQTM 06-09 01:11 → EDBEDREQDT 06-09 01:11 → EDBEDREQSVC 06-09 01:11 → ENRESERV 06-09 08:45 → ER 06-09 11:04 → 6WST 06-10 05:03 → 5WST 06-15 17:44 → 8WST 06-23 00:28
PROVIDERS: ADMIT Internal Medicine; ATTEND Internal Medicine
PROC: 05HY33Z Insertion of Infusion Device into Upper Vein, Percutaneous Approach (ICD-10-PCS; principal; 2020-06-11)
PROC: B54MZZA Ultrasonography of Right Upper Extremity Veins, Guidance (ICD-10-PCS; 2020-06-11)
PROC: 02HV33Z Insertion of Infusion Device into Superior Vena Cava, Percutaneous Approach (ICD-10-PCS; 2020-06-15)
PROC: B5181ZA Fluoroscopy of Superior Vena Cava using Low Osmolar Contrast, Guidance (ICD-10-PCS; 2020-06-15)
PROC: B548ZZA Ultrasonography of Superior Vena Cava, Guidance (ICD-10-PCS; 2020-06-15)
DX: A41.51 Sepsis due to Escherichia coli [E. coli] (principal); J18.9 Pneumonia, unspecified organism; G93.41 Metabolic encephalopathy; N39.0 Urinary tract infection, site not specified; E87.1 Hypo-osmolality and hyponatremia; K80.01 Calculus of gallbladder with acute cholecystitis with obstruction; F03.90 Unspecified dementia, unspecified severity, without behavioral disturbance, psychotic disturbance, mood disturbance, and anxiety; E78.5 Hyperlipidemia, unspecified; E87.6 Hypokalemia; G93.89 Other specified disorders of brain; D64.9 Anemia, unspecified; R06.03 Acute respiratory distress; R73.9 Hyperglycemia, unspecified; K57.90 Diverticulosis of intestine, part unspecified, without perforation or abscess without bleeding; E66.01 Morbid (severe) obesity due to excess calories; I10 Essential (primary) hypertension; K76.0 Fatty (change of) liver, not elsewhere classified; L30.4 Erythema intertrigo; Z51.5 Encounter for palliative care; Z20.822 Contact with and (suspected) exposure to COVID-19; K72.90 Hepatic failure, unspecified without coma; Z87.442 Personal history of urinary calculi; Z68.39 Body mass index [BMI] 39.0-39.9, adult; Z86.73 Personal history of transient ischemic attack (TIA), and cerebral infarction without residual deficits; Z79.51 Long term (current) use of inhaled steroids; Z79.899 Other long term (current) drug therapy
CPT/HCPCS: 36415; 36573; 36600; 71045; 74176; 74181; 76700; 76770; 78227; 78580; 80048; 80053; 80076; 81003; 82140; 82150; 82375; 82550; 82553; 82728; 82805; 83605; 83880; 84132; 84145; 84443; 84484; 85025; 85027; 85379; 86140; 86705; 86709; 86803; 86850; 86900; 87077; 87186; 87340; 87426; 87635; 92610; 93005; 93306; 93970; 94640; 99285; A6261; A9537; C1725; C1893; J0360; J0456; J0696; J1100; J1160; J1200; J1580; J1630; J1650; J2060; J2185; J2405; J2543; J3490; J7030; J7040; J7050; J7060; U0003

== ENCOUNTER 2020-12-02 09:03 | Inpatient (IN) | payer MEDICARE, MEDICAID, BC ==
[~2020-12-02] VITALS: Ht 162.6 cm; Wt 90.7 kg
[~2020-12-02 09:03] MED LIST changes: +AMOX1TAB16 MT; -ASPI-1158; +ASPI-1406; -LEVO500T2 MT; -LOSA25TA26; -POTA8TAB4
[2020-12-02] MEDS ORDERED: MEROPENEM 1,000 MG in SODIUM CHLORIDE 0.9% 100 ML IV ONE (09:45)
[2020-12-02] MEDS ORDERED: SODIUM CHLORIDE 0.9% 1000ML BAG (SEPSIS BOLUS) IV ONE ×3 (09:45→17:45)
[2020-12-02] MEDS ORDERED: VANCOMYCIN 1 G PREMIX 200 ML IV ONE (09:45)
[2020-12-02] MEDS ORDERED: ACETAMINOPHEN 650MG SUPP PR ONE (10:15)
[2020-12-02 11:22] LABS: CLARITY URINE TURBID (CLEAR); COLOR URINE RED (YELLOW); KETONES URINE 1+ (NEGATIVE); LEUKOCYTE ESTERASE URINE 1+ (NEGATIVE); NITRITE URINE POSITIVE (NEGATIVE); OCCULT BLOOD URINE TRACE (NEGATIVE); PROTEIN URINE TRACE (NEGATIVE); SPECIFIC GRAVITY URINE 1.023 (1.005-1.030)
[2020-12-02 11:36] LABS: CHLORIDE 117 mEq/L (98-107)
[2020-12-02 11:38] LABS: INR 1.7; PROTHROMBIN TIME 17.7 sec (9.6-11.0)
[2020-12-02 11:41] LABS: BASOPHILS % 0.1 % (0.0-2.0); EOSINOPHILS % 0.2 % (0.0-5.0); HEMATOCRIT. 25.7 % (36.0-48.0); HEMOGLOBIN. 8.6 g/dL (12.0-16.0); LYMPHOCYTES % 9.5 % (20.0-50.0); MEAN CORPUSCULAR HEMOGLOBIN 32.6 pg (28.0-32.0); MEAN CORPUSCULAR VOLUME 97.8 fL (81.0-99.0); MEAN PLATELET VOLUME 7.4 fl (7.4-10.4); MONOCYTES % 6.7 % (2.0-8.0); NEUTROPHILS % 83.5 % (40.0-76.0); PLATELET 273 x1000/uL (130-400); RED BLOOD CELL COUNT 2.63 mill/uL (4.2-5.4); RED CELL DISTRIBUTION WIDTH 17.5 % (11.6-14.6)
[2020-12-02] MEDS ORDERED: ACETAMINOPHEN 650MG SUPP PR PRN (14:15)
[2020-12-02] MEDS ORDERED: LORAZEPAM 2MG/ML CPJ IV PRN (14:15)
[2020-12-02] MEDS ORDERED: ONDANSETRON HCL 4MG/2ML INJ IV PRN (14:15)
[2020-12-02] MEDS ORDERED: ENOXAPARIN 40MG/0.4ML SYR SUBCUT SCH (14:15)
[2020-12-02] MEDS: ENOXAPARIN 30MG/0.3ML SYR SUBCUT SCH (14:35)
[2020-12-02] MEDS ORDERED: CEFTRIAXONE 1 G PREMIX 50 ML IV SCH (15:00)
[2020-12-02] MEDS: DEXT 5%/0.45% NACL 1000ML 1,000 ML IV SCH (15:07)
[2020-12-02 16:30] VITALS: BP 75/45
[2020-12-02 18:00] VITALS: BP 75/45
[2020-12-02] MEDS ORDERED: SODIUM CHLORIDE 0.9% 500 ML IV SCH ×2 (18:00)
[2020-12-02 20:00] VITALS: BP 77/49
[2020-12-03] VITALS (47 sets, daily range): BP systolic 56–145; BP diastolic 18–74
[2020-12-03] MEDS: DEXT 5%/0.45% NACL 1000ML 1,000 ML IV SCH ×2 (02:15→17:42)
[2020-12-03 05:50] LABS: BASOPHILS % 0.2 % (0.0-2.0); EOSINOPHILS % 0.9 % (0.0-5.0); HEMATOCRIT. 28.1 % (36.0-48.0); HEMOGLOBIN. 8.8 g/dL (12.0-16.0); LYMPHOCYTES % 13.3 % (20.0-50.0); MEAN CORPUSCULAR HEMOGLOBIN 31.5 pg (28.0-32.0); MEAN CORPUSCULAR VOLUME 100.6 fL (81.0-99.0); MEAN PLATELET VOLUME 7.5 fl (7.4-10.4); MONOCYTES % 6.1 % (2.0-8.0); NEUTROPHILS % 79.5 % (40.0-76.0); PLATELET 288 x1000/uL (130-400); RED BLOOD CELL COUNT 2.79 mill/uL (4.2-5.4); RED CELL DISTRIBUTION WIDTH 18.5 % (11.6-14.6)
[2020-12-03 06:03] LABS: CHLORIDE 118 mEq/L (98-107)
[2020-12-03] MEDS ORDERED: NOREPINEPHRINE 8 MG in DEXT 5% WATER 242 ML IV PRN (09:30)
[2020-12-03] MEDS: ENOXAPARIN 30MG/0.3ML SYR SUBCUT SCH (09:54)
[2020-12-03] MEDS: NYSTATIN/TRIAMCIN CREAM 15GM TOP SCH ×3 (12:00→17:42)
[2020-12-03] MEDS ORDERED: CEFTRIAXONE 1,000 MG in DEXTROSE 5% WATER 50 ML IV SCH (12:00)
[2020-12-03] MEDS: PANTOPRAZOLE SODIUM 40 MG/VIAL IV SCH (12:28)
[2020-12-03] MEDS ORDERED: KETOROLAC 15MG/ML VIAL IV PRN (14:15)
[2020-12-03] MEDS: PIPERACILLIN/TAZOBACTAM 2.25 G in DEXTROSE 5% WATER 50 ML IV SCH ×2 (14:19→20:05)
[2020-12-03] MEDS: PHENYLEPHRINE 100 MG in DEXT 5% WATER 240 ML IV PRN (20:05)
[2020-12-03] MEDS ORDERED: VANCOMYCIN 1 G PREMIX 200 ML IV NR (21:00)
[2020-12-03] MEDS ORDERED: VANCOMYCIN 1500MG in DEXTROSE 5% WATER 250ML IV SCH (22:00)
[2020-12-04] VITALS (94 sets, daily range): BP systolic 52–187; BP diastolic 18–138
[2020-12-04] MEDS: PIPERACILLIN/TAZOBACTAM 2.25 G in DEXTROSE 5% WATER 50 ML IV SCH ×4 (02:47→20:34)
[2020-12-04 06:14] LABS: HEMATOCRIT. 30.6 % (36.0-48.0); HEMOGLOBIN. 9.8 g/dL (12.0-16.0); MEAN CORPUSCULAR HEMOGLOBIN 32.4 pg (28.0-32.0); MEAN CORPUSCULAR VOLUME 101.3 fL (81.0-99.0); MEAN PLATELET VOLUME 7.5 fl (7.4-10.4); PLATELET 373 x1000/uL (130-400); RED BLOOD CELL COUNT 3.02 mill/uL (4.2-5.4); RED CELL DISTRIBUTION WIDTH 18.6 % (11.6-14.6)
[2020-12-04 06:20] LABS: CHLORIDE 116 mEq/L (98-107)
[2020-12-04 06:32] LABS: INR 1.6; PROTHROMBIN TIME 16.2 sec (9.6-11.0)
[2020-12-04] MEDS: DEXT 5%/0.45% NACL 1000ML 1,000 ML IV SCH ×2 (06:36→20:35)
[2020-12-04] MEDS ORDERED: LIDOCAINE HCL 1% 20ML VIAL (Pyxis) INJ ONE (08:28)
[2020-12-04] MEDS: PHENYLEPHRINE 100 MG in DEXT 5% WATER 240 ML IV PRN (08:51)
[2020-12-04] MEDS: ENOXAPARIN 30MG/0.3ML SYR SUBCUT SCH (08:52)
[2020-12-04] MEDS: PANTOPRAZOLE SODIUM 40 MG/VIAL IV SCH (08:52)
[2020-12-04] MEDS: NYSTATIN/TRIAMCIN CREAM 15GM TOP SCH ×3 (09:59→17:31)
[2020-12-04 12:46] LABS: PLATELET ESTIMATE NORMAL
[2020-12-04] MEDS ORDERED: VANCOMYCIN 750 MG PREMIX 150 ML IV SCH (18:00)
[2020-12-04] MEDS ORDERED: PHYTONADIONE 10MG/ML AMP SUBCUT SCH (18:30)
[2020-12-05] VITALS (87 sets, daily range): BP systolic 66–157; BP diastolic 24–95
[2020-12-05] MEDS: PIPERACILLIN/TAZOBACTAM 2.25 G in DEXTROSE 5% WATER 50 ML IV SCH ×4 (02:20→20:07)
[2020-12-05] MEDS: PHENYLEPHRINE 100 MG in DEXT 5% WATER 240 ML IV PRN (03:13)
[2020-12-05 05:42] LABS: HEMATOCRIT. 25.6 % (36.0-48.0); HEMOGLOBIN. 8.5 g/dL (12.0-16.0); MEAN CORPUSCULAR HEMOGLOBIN 32.5 pg (28.0-32.0); MEAN CORPUSCULAR VOLUME 98.1 fL (81.0-99.0); MEAN PLATELET VOLUME 7.8 fl (7.4-10.4); PLATELET 321 x1000/uL (130-400); RED BLOOD CELL COUNT 2.61 mill/uL (4.2-5.4); RED CELL DISTRIBUTION WIDTH 17.8 % (11.6-14.6)
[2020-12-05 05:52] LABS: CHLORIDE 116 mEq/L (98-107)
[2020-12-05] MEDS: DEXT 5%/0.45% NACL 1000ML 1,000 ML IV SCH ×2 (07:12→23:00)
[2020-12-05] MEDS: PANTOPRAZOLE SODIUM 40 MG/VIAL IV SCH (08:25)
[2020-12-05] MEDS: NYSTATIN/TRIAMCIN CREAM 15GM TOP SCH ×3 (08:26→17:43)
[2020-12-05] MEDS: ENOXAPARIN 30MG/0.3ML SYR SUBCUT SCH (09:50)
[2020-12-05] MEDS ORDERED: POTASSIUM CHLORIDE INJ 40 MEQ in DEXT 5% WATER 500 ML IV NR (11:45)
[2020-12-05 11:48] LABS: PLATELET ESTIMATE NORMAL
[2020-12-05] MEDS: MIDODRINE HCL 5MG TABLET PO SCH ×2 (13:50→17:47)
[2020-12-05] MEDS ORDERED: VANCOMYCIN 1 G PREMIX 200 ML IV SCH (18:00)
[2020-12-06] VITALS (88 sets, daily range): BP systolic 54–173; BP diastolic 17–95
[2020-12-06] MEDS: PHENYLEPHRINE 100 MG in DEXT 5% WATER 240 ML IV PRN ×2 (00:39→14:42)
[2020-12-06] MEDS: PIPERACILLIN/TAZOBACTAM 2.25 G in DEXTROSE 5% WATER 50 ML IV SCH ×4 (02:00→20:02)
[2020-12-06 05:35] LABS: HEMATOCRIT. 25.4 % (36.0-48.0); HEMOGLOBIN. 8.5 g/dL (12.0-16.0); MEAN CORPUSCULAR HEMOGLOBIN 32.5 pg (28.0-32.0); MEAN CORPUSCULAR VOLUME 97.6 fL (81.0-99.0); MEAN PLATELET VOLUME 7.5 fl (7.4-10.4); PLATELET 301 x1000/uL (130-400); RED BLOOD CELL COUNT 2.61 mill/uL (4.2-5.4); RED CELL DISTRIBUTION WIDTH 17.7 % (11.6-14.6)
[2020-12-06 05:41] LABS: CHLORIDE 114 mEq/L (98-107)
[2020-12-06 06:10] LABS: INR 1.2; PROTHROMBIN TIME 12.3 sec (9.6-11.0)
[2020-12-06] MEDS: MIDODRINE HCL 5MG TABLET PO SCH ×3 (09:01→17:03)
[2020-12-06] MEDS: PANTOPRAZOLE SODIUM 40 MG/VIAL IV SCH (09:01)
[2020-12-06] MEDS: NYSTATIN/TRIAMCIN CREAM 15GM TOP SCH ×3 (09:03→17:03)
[2020-12-06] MEDS: ENOXAPARIN 30MG/0.3ML SYR SUBCUT SCH (09:37)
[2020-12-06] MEDS: SODIUM CHLORIDE 0.9% 1,000 ML IV SCH (11:21)
[2020-12-06 11:26] LABS: PLATELET ESTIMATE NORMAL
[2020-12-06] MEDS: DEXT 5%/0.45% NACL 1000ML 1,000 ML IV SCH (11:27)
[2020-12-06] MEDS ORDERED: POTASSIUM CHLORIDE INJ 40 MEQ in DEXT 5% WATER 250 ML IV NR (12:00)
[2020-12-06] MEDS: VANCOMYCIN 1 G PREMIX 200 ML IV SCH (17:02)
[2020-12-07] VITALS (87 sets, daily range): BP systolic 59–186; BP diastolic 20–114
[2020-12-07] MEDS: SODIUM CHLORIDE 0.9% 1,000 ML IV SCH ×2 (01:30→12:47)
[2020-12-07] MEDS: PIPERACILLIN/TAZOBACTAM 2.25 G in DEXTROSE 5% WATER 50 ML IV SCH ×3 (01:40→14:26)
[2020-12-07] MEDS: PHENYLEPHRINE 100 MG in DEXT 5% WATER 240 ML IV PRN ×2 (01:41→19:52)
[2020-12-07 06:08] LABS: HEMATOCRIT. 26.3 % (36.0-48.0); HEMOGLOBIN. 8.4 g/dL (12.0-16.0); MEAN CORPUSCULAR HEMOGLOBIN 31.2 pg (28.0-32.0); MEAN PLATELET VOLUME 7.9 fl (7.4-10.4); PLATELET 287 x1000/uL (130-400); RED BLOOD CELL COUNT 2.68 mill/uL (4.2-5.4); RED CELL DISTRIBUTION WIDTH 17.3 % (11.6-14.6)
[2020-12-07] MEDS: PANTOPRAZOLE SODIUM 40 MG/VIAL IV SCH (08:43)
[2020-12-07] MEDS: MIDODRINE HCL 5MG TABLET PO SCH ×3 (08:44→16:51)
[2020-12-07] MEDS: ENOXAPARIN 40MG/0.4ML SYR SUBCUT SCH (08:44)
[2020-12-07] MEDS: NYSTATIN/TRIAMCIN CREAM 15GM TOP SCH ×3 (08:44→16:50)
[2020-12-07 09:36] LABS: PLATELET ESTIMATE NORMAL
[2020-12-07 12:16] LABS: CHLORIDE 116 mEq/L (98-107)
[2020-12-07] MEDS: VANCOMYCIN 1 G PREMIX 200 ML IV SCH (12:46)
[2020-12-07] MEDS ORDERED: ACETAMINOPHEN 325MG TABLET PO PRN (13:30)
[2020-12-07] MEDS ORDERED: POTASSIUM CHLORIDE INJ 40 MEQ in DEXT 5% WATER 250 ML IV SCH (14:00)
[2020-12-07] MEDS: CEFEPIME 1,000 MG in DEXTROSE 5% WATER 50 ML IV SCH (16:51)
[2020-12-07] MEDS: METRONIDAZOLE 500MG TABLET PO SCH (22:06)
[2020-12-08] VITALS (92 sets, daily range): BP systolic 73–201; BP diastolic 24–147
[2020-12-08] MEDS: SODIUM CHLORIDE 0.9% 1,000 ML IV SCH ×2 (01:19→15:50)
[2020-12-08] MEDS: METRONIDAZOLE 500MG TABLET PO SCH ×3 (05:36→22:43)
[2020-12-08] MEDS: CEFEPIME 1,000 MG in DEXTROSE 5% WATER 50 ML IV SCH ×2 (05:36→16:19)
[2020-12-08 05:47] LABS: HEMATOCRIT. 22.2 % (36.0-48.0); HEMOGLOBIN. 7.2 g/dL (12.0-16.0); MEAN CORPUSCULAR HEMOGLOBIN 31.4 pg (28.0-32.0); MEAN CORPUSCULAR VOLUME 96.7 fL (81.0-99.0); MEAN PLATELET VOLUME 8.1 fl (7.4-10.4); PLATELET 250 x1000/uL (130-400); RED BLOOD CELL COUNT 2.29 mill/uL (4.2-5.4); RED CELL DISTRIBUTION WIDTH 17.5 % (11.6-14.6)
[2020-12-08] MEDS ORDERED: SODIUM CHLORIDE 0.9% 1,000 ML IV ONE (08:00)
[2020-12-08 09:01] LABS: CHLORIDE 117 mEq/L (98-107)
[2020-12-08] MEDS: ENOXAPARIN 40MG/0.4ML SYR SUBCUT SCH (10:14)
[2020-12-08] MEDS: PANTOPRAZOLE SODIUM 40 MG/VIAL IV SCH (10:14)
[2020-12-08] MEDS: NYSTATIN/TRIAMCIN CREAM 15GM TOP SCH ×3 (10:15→16:20)
[2020-12-08] MEDS: MIDODRINE HCL 5MG TABLET PO SCH ×3 (10:15→16:20)
[2020-12-08 11:07] LABS: BG BASE EXCESS -7.1 mmol/L (-2.0-2.0); BG CARBOXYHEMOGLOBIN 0.3 % (0.5-1.5); BG DEOXYHEMOGLOBIN 2.3 % (0.0-5.0); BG FRACTION INSPIRED OXYGEN 21; BG HCO3 ACT 15.5 mmol/L (22.0-26.0); BG METHEMOGLOBIN 0.4 % (0.0-1.5); BG OXYGEN SATURATION 97.7 % (92.0-98.5); BG PCO2 21.5 mmHg (35.0-45.0); BG PH 7.475 (7.350-7.450); BG SAMPLE SITE RIGHT RADIAL; BG TOTAL HEMOGLOBIN 7.5 g/dL (12.0-18.0); BG VENT MODE ROOM AIR
[2020-12-08 12:16] LABS: PLATELET ESTIMATE NORMAL
[2020-12-08 21:41] LABS: HEMATOCRIT 25.8 % (36.0-48.0); HEMOGLOBIN 8.3 g/dL (12.0-16.0)
[2020-12-08 21:53] LABS: INR 1.1; PROTHROMBIN TIME 12.1 sec (9.6-11.0)
[2020-12-09] VITALS (63 sets, daily range): BP systolic 61–160; BP diastolic 27–106
[2020-12-09] MEDS: CEFEPIME 1,000 MG in DEXTROSE 5% WATER 50 ML IV SCH ×2 (03:47→15:11)
[2020-12-09] MEDS: SODIUM CHLORIDE 0.9% 1,000 ML IV SCH ×2 (05:50→21:31)
[2020-12-09] MEDS: METRONIDAZOLE 500MG TABLET PO SCH ×3 (05:50→21:31)
[2020-12-09 05:57] LABS: BASOPHILS % 0.4 % (0.0-2.0); EOSINOPHILS % 0.6 % (0.0-5.0); HEMATOCRIT. 24.9 % (36.0-48.0); HEMOGLOBIN. 8.1 g/dL (12.0-16.0); LYMPHOCYTES % 14.5 % (20.0-50.0); MEAN CORPUSCULAR HEMOGLOBIN 31.1 pg (28.0-32.0); MEAN CORPUSCULAR VOLUME 95.3 fL (81.0-99.0); MEAN PLATELET VOLUME 8.2 fl (7.4-10.4); MONOCYTES % 8.1 % (2.0-8.0); NEUTROPHILS % 76.4 % (40.0-76.0); PLATELET 230 x1000/uL (130-400); RED BLOOD CELL COUNT 2.62 mill/uL (4.2-5.4); RED CELL DISTRIBUTION WIDTH 18.7 % (11.6-14.6)
[2020-12-09 06:01] LABS: CHLORIDE 122 mEq/L (98-107)
[2020-12-09] MEDS: ENOXAPARIN 40MG/0.4ML SYR SUBCUT SCH (09:00)
[2020-12-09] MEDS: PANTOPRAZOLE SODIUM 40 MG/VIAL IV SCH (09:31)
[2020-12-09] MEDS: MIDODRINE HCL 5MG TABLET PO SCH ×3 (09:32→18:42)
[2020-12-09] MEDS: NYSTATIN/TRIAMCIN CREAM 15GM TOP SCH ×3 (09:33→18:42)
[2020-12-10] VITALS (12 sets, daily range): BP systolic 105–149; BP diastolic 40–106
[2020-12-10] MEDS: CEFEPIME 1,000 MG in DEXTROSE 5% WATER 50 ML IV SCH ×2 (04:27→17:24)
[2020-12-10] MEDS: METRONIDAZOLE 500MG TABLET PO SCH ×3 (06:15→23:33)
[2020-12-10] MEDS: MIDODRINE HCL 5MG TABLET PO SCH ×4 (09:00→17:00)
[2020-12-10] MEDS: SODIUM CHLORIDE 0.9% 1,000 ML IV SCH ×2 (09:34→23:46)
[2020-12-10] MEDS: PANTOPRAZOLE SODIUM 40 MG/VIAL IV SCH (09:35)
[2020-12-10] MEDS: NYSTATIN/TRIAMCIN CREAM 15GM TOP SCH (09:38)
[2020-12-10] MEDS: NYSTATIN POWDER 15GM TOP SCH ×3 (09:38→17:25)
[2020-12-10] MEDS: ENOXAPARIN 40MG/0.4ML SYR SUBCUT SCH (09:43)
[2020-12-11] VITALS (12 sets, daily range): BP systolic 101–153; BP diastolic 45–97
[2020-12-11] MEDS ORDERED: DEXT 5%/0.9% NACL 1,000 ML IV ONE (01:30)
[2020-12-11] MEDS ORDERED: DEXT 5%/0.45% NACL 1000ML 1,000 ML IV ONE (02:15)
[2020-12-11] MEDS: CEFEPIME 1,000 MG in DEXTROSE 5% WATER 50 ML IV SCH ×2 (04:57→16:18)
[2020-12-11 06:15] LABS: BASOPHILS % 0.4 % (0.0-2.0); EOSINOPHILS % 0.6 % (0.0-5.0); HEMATOCRIT. 24.1 % (36.0-48.0); LYMPHOCYTES % 16.2 % (20.0-50.0); MEAN CORPUSCULAR HEMOGLOBIN 31.3 pg (28.0-32.0); MEAN CORPUSCULAR VOLUME 94.7 fL (81.0-99.0); MEAN PLATELET VOLUME 7.8 fl (7.4-10.4); MONOCYTES % 7.4 % (2.0-8.0); NEUTROPHILS % 75.4 % (40.0-76.0); PLATELET 275 x1000/uL (130-400); RED BLOOD CELL COUNT 2.55 mill/uL (4.2-5.4); RED CELL DISTRIBUTION WIDTH 18.7 % (11.6-14.6)
[2020-12-11] MEDS: METRONIDAZOLE 500MG TABLET PO SCH ×3 (06:18→21:50)
[2020-12-11 06:25] LABS: INR 1.3; PROTHROMBIN TIME 14.1 sec (9.6-11.0)
[2020-12-11 06:26] LABS: CHLORIDE 126 mEq/L (98-107)
[2020-12-11] MEDS: PANTOPRAZOLE SODIUM 40 MG/VIAL IV SCH (08:48)
[2020-12-11] MEDS: NYSTATIN POWDER 15GM TOP SCH ×3 (08:48→16:19)
[2020-12-11] MEDS: MIDODRINE HCL 5MG TABLET PO SCH ×4 (08:51→18:15)
[2020-12-11] MEDS ORDERED: BACTERIOSTATIC SODIUM CHLORIDE 0.9% 30ML VIAL IJ ONE (11:00)
[2020-12-11] MEDS ORDERED: MIDAZOLAM HCL 2 MG/2 ML VIAL IV PRN (12:10)
[2020-12-11] MEDS ORDERED: FENTANYL CITRATE/PF 50MCG/ML 2ML VIAL ONE (12:17)
[2020-12-11] MEDS ORDERED: MIDAZOLAM HCL 5 MG/5 ML VIAL ONE (12:17)
[2020-12-12] VITALS (11 sets, daily range): BP systolic 92–139; BP diastolic 27–84
[2020-12-12] MEDS: CEFEPIME 1,000 MG in DEXTROSE 5% WATER 50 ML IV SCH ×2 (04:07→17:09)
[2020-12-12] MEDS: METRONIDAZOLE 500MG TABLET PO SCH ×3 (06:15→21:57)
[2020-12-12] MEDS: PANTOPRAZOLE SODIUM 40 MG/VIAL IV SCH (09:30)
[2020-12-12] MEDS: NYSTATIN POWDER 15GM TOP SCH ×3 (09:33→17:08)
[2020-12-12] MEDS: MIDODRINE HCL 5MG TABLET PO SCH ×3 (09:36→17:09)
[2020-12-13] VITALS (12 sets, daily range): BP systolic 93–128; BP diastolic 36–108
[2020-12-13] MEDS: CEFEPIME 1,000 MG in DEXTROSE 5% WATER 50 ML IV SCH ×2 (05:33→17:50)
[2020-12-13] MEDS: METRONIDAZOLE 500MG TABLET PO SCH ×3 (05:33→21:11)
[2020-12-13] MEDS: NYSTATIN POWDER 15GM TOP SCH ×3 (08:41→17:52)
[2020-12-13] MEDS: MIDODRINE HCL 5MG TABLET PO SCH ×3 (08:42→17:52)
[2020-12-13] MEDS: PANTOPRAZOLE SODIUM 40 MG/VIAL IV SCH (08:42)
[2020-12-13] MEDS: ENOXAPARIN 40MG/0.4ML SYR SUBCUT SCH (13:42)
[2020-12-13] MEDS: NYSTATIN/TRIAMCIN CREAM 15GM TOP SCH (21:11)
[2020-12-14] VITALS (11 sets, daily range): BP systolic 85–116; BP diastolic 42–79
[2020-12-14] MEDS: CEFEPIME 1,000 MG in DEXTROSE 5% WATER 50 ML IV SCH ×2 (05:05→18:39)
[2020-12-14] MEDS: METRONIDAZOLE 500MG TABLET PO SCH ×3 (05:05→22:49)
[2020-12-14 07:14] LABS: HEMATOCRIT. 24.1 % (36.0-48.0); MEAN CORPUSCULAR HEMOGLOBIN 31.7 pg (28.0-32.0); MEAN CORPUSCULAR VOLUME 96.3 fL (81.0-99.0); MEAN PLATELET VOLUME 8.9 fl (7.4-10.4); PLATELET 283 x1000/uL (130-400); RED BLOOD CELL COUNT 2.51 mill/uL (4.2-5.4); RED CELL DISTRIBUTION WIDTH 20.2 % (11.6-14.6)
[2020-12-14 07:21] LABS: CHLORIDE 131 mEq/L (98-107)
[2020-12-14] MEDS: PANTOPRAZOLE SODIUM 40 MG/VIAL IV SCH (09:00)
[2020-12-14] MEDS: MIDODRINE HCL 5MG TABLET PO SCH ×3 (09:01→18:58)
[2020-12-14] MEDS: NYSTATIN POWDER 15GM TOP SCH ×3 (09:01→17:00)
[2020-12-14] MEDS: NYSTATIN/TRIAMCIN CREAM 15GM TOP SCH ×3 (09:03→17:00)
[2020-12-14] MEDS: DEXT 5%/0.45% NACL 1000ML 1,000 ML IV SCH (09:44)
[2020-12-14] MEDS: ENOXAPARIN 40MG/0.4ML SYR SUBCUT SCH (13:06)
[2020-12-14] MEDS: METOCLOPRAMIDE HCL 10MG/2ML VIAL IV SCH ×2 (13:10→18:59)
[2020-12-14 16:46] LABS: PLATELET ESTIMATE NORMAL
[2020-12-15] VITALS: BP 99/52
[2020-12-15] MEDS: METOCLOPRAMIDE HCL 10MG/2ML VIAL IV SCH ×4 (01:24→17:04)
[2020-12-15] MEDS: DEXT 5%/0.45% NACL 1000ML 1,000 ML IV SCH (01:39)
[2020-12-15 04:00] VITALS: BP 102/48
[2020-12-15] MEDS: METRONIDAZOLE 500MG TABLET PO SCH ×2 (05:37→13:54)
[2020-12-15 08:00] VITALS: BP 95/46
[2020-12-15 08:43] LABS: CLARITY URINE TURBID (CLEAR); COLOR URINE DARK YELLOW (YELLOW); KETONES URINE 1+ (NEGATIVE); LEUKOCYTE ESTERASE URINE 3+ (NEGATIVE); NITRITE URINE POSITIVE (NEGATIVE); OCCULT BLOOD URINE 3+ (NEGATIVE); PH URINE 5.5 (4.5-8.0); PROTEIN URINE 2+ (NEGATIVE); SPECIFIC GRAVITY URINE 1.028 (1.005-1.030)
[2020-12-15 08:44] LABS: BASOPHILS % 0.2 % (0.0-2.0); EOSINOPHILS % 1.1 % (0.0-5.0); HEMATOCRIT. 23.2 % (36.0-48.0); HEMOGLOBIN. 7.6 g/dL (12.0-16.0); MEAN CORPUSCULAR HEMOGLOBIN 32.2 pg (28.0-32.0); MEAN CORPUSCULAR VOLUME 98.5 fL (81.0-99.0); MONOCYTES % 3.9 % (2.0-8.0); NEUTROPHILS % 81.8 % (40.0-76.0); RED BLOOD CELL COUNT 2.35 mill/uL (4.2-5.4); RED CELL DISTRIBUTION WIDTH 20.9 % (11.6-14.6)
[2020-12-15 08:48] LABS: CHLORIDE 129 mEq/L (98-107)
[2020-12-15] MEDS: NYSTATIN POWDER 15GM TOP SCH ×4 (09:00→17:03)
[2020-12-15] MEDS: PANTOPRAZOLE SODIUM 40 MG/VIAL IV SCH (09:28)
[2020-12-15] MEDS: MIDODRINE HCL 5MG TABLET PO SCH ×3 (09:29→17:15)
[2020-12-15] MEDS: NYSTATIN/TRIAMCIN CREAM 15GM TOP SCH ×3 (09:31→17:03)
[2020-12-15 11:01] LABS: PLATELET 237 x1000/uL (130-400)
[2020-12-15 12:00] VITALS: BP 136/71
[2020-12-15 13:21] LABS: BG BASE EXCESS -9.2 mmol/L (-2.0-2.0); BG CARBOXYHEMOGLOBIN 0.3 % (0.5-1.5); BG DEOXYHEMOGLOBIN 2.6 % (0.0-5.0); BG FRACTION INSPIRED OXYGEN 21; BG HCO3 ACT 12.1 mmol/L (22.0-26.0); BG METHEMOGLOBIN 0.3 % (0.0-1.5); BG OXYGEN SATURATION 97.4 % (92.0-98.5); BG OXYHEMOGLOBIN 96.8 % (94.0-97.0); BG PCO2 16.1 mmHg (35.0-45.0); BG PH 7.494 (7.350-7.450); BG PO2 99.4 mmHg (75.0-100.0); BG SAMPLE SITE RIGHT BRACHIAL; BG TOTAL HEMOGLOBIN 9.7 g/dL (12.0-18.0); BG VENT MODE ROOM AIR
[2020-12-15] MEDS: ENOXAPARIN 40MG/0.4ML SYR SUBCUT SCH (13:56)
[2020-12-15] MEDS ORDERED: SODIUM BICARBONATE 100 MEQ in DEXTROSE 5% WATER 1,000 ML IV SCH (14:00)
[2020-12-15] MEDS ORDERED: FLUCONAZOLE 100MG TABLET PO SCH (15:45)
[2020-12-15 16:00] VITALS: BP 110/69
[2020-12-15 18:26] VITALS: BP 136/71
== END 2020-12-15 20:22 | DRG 871 ==
LOC: ER 09:03 → 8WST 12:27 → ENRESERV 15:11 → CVICU 12-03 03:45 → 3WST 12-09 16:28 → 6EST 12-14 16:05
PROVIDERS: ADMIT Hospitalist; ATTEND Hospitalist
PROC: 02H633Z Insertion of Infusion Device into Right Atrium, Percutaneous Approach (ICD-10-PCS; 2020-12-04)
PROC: B548ZZA Ultrasonography of Superior Vena Cava, Guidance (ICD-10-PCS; 2020-12-04)
PROC: 30233N1 Transfusion of Nonautologous Red Blood Cells into Peripheral Vein, Percutaneous Approach (ICD-10-PCS; 2020-12-08)
PROC: 0DH68UZ Insertion of Feeding Device into Stomach, Via Natural or Artificial Opening Endoscopic (ICD-10-PCS; principal; 2020-12-11)
DX: A41.02 Sepsis due to Methicillin resistant Staphylococcus aureus (principal); E43 Unspecified severe protein-calorie malnutrition; G92 Toxic encephalopathy; N17.0 Acute kidney failure with tubular necrosis; R65.21 Severe sepsis with septic shock; I21.4 Non-ST elevation (NSTEMI) myocardial infarction; I46.9 Cardiac arrest, cause unspecified; J96.00 Acute respiratory failure, unspecified whether with hypoxia or hypercapnia; N18.6 End stage renal disease; D68.9 Coagulation defect, unspecified; E87.0 Hyperosmolality and hypernatremia; N39.0 Urinary tract infection, site not specified; E87.2 Acidosis; I12.0 Hypertensive chronic kidney disease with stage 5 chronic kidney disease or end stage renal disease; B36.9 Superficial mycosis, unspecified; D63.8 Anemia in other chronic diseases classified elsewhere; E78.5 Hyperlipidemia, unspecified; F03.90 Unspecified dementia, unspecified severity, without behavioral disturbance, psychotic disturbance, mood disturbance, and anxiety; I48.0 Paroxysmal atrial fibrillation; E87.6 Hypokalemia; L60.2 Onychogryphosis; L89.626 Pressure-induced deep tissue damage of left heel; I73.9 Peripheral vascular disease, unspecified; D53.9 Nutritional anemia, unspecified; R19.7 Diarrhea, unspecified; K29.70 Gastritis, unspecified, without bleeding; K44.9 Diaphragmatic hernia without obstruction or gangrene; E83.52 Hypercalcemia; E87.5 Hyperkalemia; Z20.822 Contact with and (suspected) exposure to COVID-19; K22.2 Esophageal obstruction; Z51.5 Encounter for palliative care; E11.22 Type 2 diabetes mellitus with diabetic chronic kidney disease; Z86.73 Personal history of transient ischemic attack (TIA), and cerebral infarction without residual deficits; Z87.442 Personal history of urinary calculi; Z88.5 Allergy status to narcotic agent; Z79.899 Other long term (current) drug therapy; Z79.82 Long term (current) use of aspirin; Z68.34 Body mass index [BMI] 34.0-34.9, adult; R62.7 Adult failure to thrive; S31.819A Unspecified open wound of right buttock, initial encounter; S71.102A Unspecified open wound, left thigh, initial encounter
CPT/HCPCS: 36415; 36600; 71045; 71275; 76937; 80048; 80053; 80202; 81003; 82040; 82375; 82550; 82805; 83036; 83605; 83735; 84134; 84145; 84443; 84484; 85014; 85018; 85025; 85049; 85379; 85384; 85651; 86140; 86850; 86900; 86920; 87426; 93005; 93306; 93923; 93970; 99291; A6261; C1725; C9113; J0692; J0696; J1650; J1885; J2060; J2185; J2250; J2370; J2543; J2765; J3010; J3370; J3430; J3480; J3490; J7030; J7040; J7050; J7060; J7070; P9016; A4315